=== PATIENT | female | born 1985 | race Caucasian/White ===

== ENCOUNTER → 2023-04-23 17:24 | Outpatient (REF) | payer OTHER, SELFPAY | LOC: HWRAD 17:24 | PROVIDERS: ATTENDING PHYSICIAN Nurse Practitioner Family | DX: M25.511 Pain in right shoulder (principal) | CPT/HCPCS: 73030 ==

== ENCOUNTER → 2023-05-08 13:25 | Outpatient (REF) | payer OTHER, SELFPAY | LOC: MRI 3T 13:25 | PROVIDERS: ATTENDING PHYSICIAN Orthopaedic Surgery Hand Surgery; FAMILY PHYSICIAN Physician Assistant Medical | DX: M25.511 Pain in right shoulder (principal) | CPT/HCPCS: 23350; 73040; 73222 ==

== ENCOUNTER → 2024-02-25 07:54 | Outpatient (REF) | payer OTHER, SELFPAY | LOC: PNTC 07:54 | PROVIDERS: ATTENDING PHYSICIAN Nurse Practitioner Family | DX: O36.80X0 Pregnancy with inconclusive fetal viability, not applicable or unspecified (principal) | CPT/HCPCS: 76801 ==

== ENCOUNTER → 2024-03-15 15:20 | Outpatient (REF) | payer OTHER, SELFPAY | LOC: PNTC 15:20 | PROVIDERS: ATTENDING PHYSICIAN Nurse Practitioner Family | DX: Z36.0 Encounter for antenatal screening for chromosomal anomalies (principal); Z36.82 Encounter for antenatal screening for nuchal translucency; Z34.90 Encounter for supervision of normal pregnancy, unspecified, unspecified trimester; Z36.9 Encounter for antenatal screening, unspecified | CPT/HCPCS: 36415; 76801; 76813 ==

== ENCOUNTER → 2024-04-12 15:15 | Outpatient (REF) | payer OTHER, SELFPAY | LOC: PNTC 15:15 | PROVIDERS: ATTENDING PHYSICIAN Obstetrics & Gynecology | DX: O35.1 Maternal care for (suspected) chromosomal abnormality in fetus (principal); O09.529 Supervision of elderly multigravida, unspecified trimester; O99.210 Obesity complicating pregnancy, unspecified trimester | CPT/HCPCS: 76805 ==

== ENCOUNTER → 2024-05-10 16:21 | Outpatient (REF) | payer OTHER, SELFPAY | LOC: PNTC 16:21 | PROVIDERS: ATTENDING PHYSICIAN Obstetrics & Gynecology | DX: O35.13X0 Maternal care for (suspected) chromosomal abnormality in fetus, Trisomy 21, not applicable or unspecified (principal); O09.529 Supervision of elderly multigravida, unspecified trimester; O99.210 Obesity complicating pregnancy, unspecified trimester | CPT/HCPCS: 76811 ==

== ENCOUNTER 2024-06-03 19:32 | Observation (INO) | payer OTHER, SELFPAY ==
[2024-06-03 20:12] VITALS: BP 123/64; BMI 34.6
== END 2024-06-03 23:57 | disposition home or self-care (01) ==
LOC: LDRP 19:32
PROVIDERS: ADMITTING PHYSICIAN Obstetrics & Gynecology; FAMILY PHYSICIAN Family Medicine
DX: O26.892 Other specified pregnancy related conditions, second trimester (principal); Z3A.24 24 weeks gestation of pregnancy; R10.9 Unspecified abdominal pain; W01.0XXA Fall on same level from slipping, tripping and stumbling without subsequent striking against object, initial encounter; Y93.01 Activity, walking, marching and hiking; Y92.89 Other specified places as the place of occurrence of the external cause; Z87.442 Personal history of urinary calculi; J45.909 Unspecified asthma, uncomplicated
CPT/HCPCS: 59899; 85460; 86850; 86900; 86901; G0378

== ENCOUNTER → 2024-06-28 17:26 | Outpatient (REF) | payer OTHER, SELFPAY | LOC: PNTC 17:26 | PROVIDERS: ATTENDING PHYSICIAN Obstetrics & Gynecology | DX: O09.529 Supervision of elderly multigravida, unspecified trimester (principal); O99.210 Obesity complicating pregnancy, unspecified trimester; O35.13X0 Maternal care for (suspected) chromosomal abnormality in fetus, Trisomy 21, not applicable or unspecified; O99.419 Diseases of the circulatory system complicating pregnancy, unspecified trimester | CPT/HCPCS: 76816 ==

== ENCOUNTER → 2024-08-02 17:17 | Outpatient (REF) | payer OTHER, SELFPAY | LOC: PNTC 17:17 | PROVIDERS: ATTENDING PHYSICIAN Obstetrics & Gynecology | DX: O09.529 Supervision of elderly multigravida, unspecified trimester (principal); O99.210 Obesity complicating pregnancy, unspecified trimester; O10.119 Pre-existing hypertensive heart disease complicating pregnancy, unspecified trimester | CPT/HCPCS: 76816 ==

== ENCOUNTER 2024-09-30 08:01 | Inpatient (IN) | payer OTHER, SELFPAY ==
[2024-09-30 08:20] VITALS: BP 133/67; BMI 39.0
[2024-09-30 10:30] LABS: Hematocrit 34.8 % (37.0-47.0); Hemoglobin 11.9 g/dL (12.0-16.0); Mean Corp Hgb Conc. 34.2 g/dL (33.0-37.0); Mean Corpuscular Volume 97.2 fL (81.0-99.0); Nucleated Red Blood Cells % 0 %; Platelet Count 197 10^3/uL (130-400); Red Cell Dist. Width 13.3 % (11.5-14.5)
[2024-09-30] MEDS: FEOSOL 325 MG PO (15:29)
[2024-09-30] MEDS: LR 1000 IV ×3 (15:30→21:29)
[2024-09-30] MEDS: PITOCIN 30 UNITS/NSS 500 ML IV (15:30)
[2024-10-01] MEDS: LR 1000 IV (01:45)
[2024-10-01] MEDS: MOTRIN 600 MG PO ×3 (05:18→17:44)
[2024-10-01] MEDS: PRENATAL PLUS 1 TABLET PO (07:28)
[2024-10-01] MEDS: COLACE 100 MG PO ×2 (07:28→20:26)
[2024-10-01] MEDS: TYLENOL 650 MG PO (20:31)
[2024-10-02] MEDS: MOTRIN 600 MG PO ×2 (00:03→06:04)
[2024-10-02 02:51] LABS: Hematocrit 28.3 % (37.0-47.0); Hemoglobin 9.7 g/dL (12.0-16.0)
[2024-10-02] MEDS: TYLENOL 650 MG PO ×2 (02:52→08:31)
[2024-10-02] MEDS: COLACE 100 MG PO (08:28)
[2024-10-02] MEDS: PRENATAL PLUS 1 TABLET PO (08:28)
[2024-10-02] MEDS: FEOSOL 325 MG PO (08:28)
[2024-10-04 14:03] LABS: Syphilis/T. pallidum Ab Reflex Negative (Negative)
== END 2024-10-02 11:59 | disposition home or self-care (01) | DRG 807 ==
LOC: LDRP 08:01
PROVIDERS: ADMITTING PHYSICIAN Obstetrics & Gynecology
PROC: 10E0XZZ Delivery of Products of Conception, External Approach (ICD-10-PCS; 2024-10-01)
PROC: 0KQM0ZZ Repair Perineum Muscle, Open Approach (ICD-10-PCS; 2024-10-01)
DX: O48.0 Post-term pregnancy (principal); Z37.0 Single live birth; O69.81X0 Labor and delivery complicated by cord around neck, without compression, not applicable or unspecified; Z3A.41 41 weeks gestation of pregnancy; O70.1 Second degree perineal laceration during delivery; O90.81 Anemia of the puerperium
CPT/HCPCS: 36415; 85014; 85018; 85025; 86780; 86850; 86900; 86901